=== PATIENT | female | born 1980 | race Caucasian/White ===

== ENCOUNTER 2019-07-16 15:32 | Emergency (ER) | payer MEDICAID ==
[~2019-07-16] VITALS: Ht 172.7 cm; Wt 85.0 kg
[~2019-07-16 15:32] MED LIST: FERROUS SULFAT325 MG PO; LISINOPRIL10 MG PO; MUCINEX DM ER1 EAC1 PO; SPRINTEC 28 DA1 EAC1 PO; TAMIFLU75 MG PO; VITAMIN B-122500 MCG SL
[2019-07-16 15:58] VITALS: Ht 172.7 cm; Wt 85.0 kg
[2019-07-16 16:21] LABS: BASOPHILS 1.1 % (0-2); EOSINOPHILS 1.1 % (0-7); HEMATOCRIT 34.8 % (36.0-48.0); HEMOGLOBIN 10.5 g/dL (12-16); IMMATURE GRANULOCYTES 0.2 % (0-5); LYMPHOCYTES 23.8 % (15-50); MCH 22.6 pg (26.0-34.0); MCHC 30.2 g/dL (31.0-37.0); MEAN PLATELET VOLUME 10.7 fL (7.4-10.4); MONOCYTES 6.3 % (2-11); NEUTROPHILS 67.5 % (40-80); RBC 4.64 10x6/uL (4.00-5.40); RDW 16.8 % (11.5-14.5)
[2019-07-16 16:29] LABS: PLATELET COUNT 424 10x3/uL (130-400)
[2019-07-16 16:41] LABS: CALC OSMOLALITY 270 mosm/kg (275-300); CALCIUM 9.3 mg/dL (8.5-10.1); CARBON DIOXIDE 30.6 mmol/L (21.0-32.0); CHLORIDE - SERUM 97 mmol/L (98-107); CREATININE - SERUM 0.8 mg/dL (0.6-1.3); GLUCOSE 94 mg/dL (74-106); POTASSIUM - SERUM 3.2 mmol/L (3.5-5.1); SODIUM 135 mmol/L (136-145); UREA NITROGEN 14 mg/dL (7-18); eGFR NON AFRICAN AMERICAN 85 mL/min (90-120)
[2019-07-16 16:49] LABS: ALBUMIN 3.8 g/dL (3.4-5.0); ALKALINE PHOSPHATASE 83 U/L (30-120); ALT (SGPT) 11 U/L (10-68); AMYLASE - SERUM 110 U/L (25-115); BILIRUBIN - TOTAL 0.24 mg/dL (0.2-1.3); LIPASE 283 U/L (73-393); PROTEIN - SERUM 8.8 g/dL (6.4-8.2)
[2019-07-16 16:58] LABS: TROPONIN-I < 0.017 ng/mL (0.000-0.060)
[2019-07-16 18:00] LABS: BILIRUBIN NEGATIVE (NEGATIVE); GLUCOSE NEGATIVE (NEGATIVE); KETONE NEGATIVE (NEGATIVE); NITRITE NEGATIVE (NEGATIVE); UROBILINOGEN NORMAL (NORMAL)
[2019-07-16 18:04] LABS: RED CELLS - URINE OCC /hpf (0-5); WHITE CELLS - URINE 0-5 /hpf (NEGATIVE)
[2019-07-16] MEDS ORDERED: FOLTX TABLET1 EACH PO (18:56)
[2019-07-16 19:50] VITALS: BP 132/85
== END 2019-07-16 19:49 | disposition home or self-care (01) ==
LOC: D.ER 15:32
PROVIDERS: Family Medicine
DX: D50.8 Other iron deficiency anemias (principal); E16.2 Hypoglycemia, unspecified; I10 Essential (primary) hypertension; R10.13 Epigastric pain